=== PATIENT | male | born 1955 | race African-American/Black ===

== ENCOUNTER 2020-07-21 18:32 | Inpatient (IN) | payer MEDICARE, MEDICAID ==
[~2020-07-21] VITALS: Ht 190.5 cm; Wt 75.8 kg
[2020-07-21] MEDS ORDERED: SODIUM CHLORIDE 0.9% 1,000 ML IV ONE (19:58)
[2020-07-21] MEDS ORDERED: OLANZAPINE 10 MG/VIAL IM ONE (20:00)
[2020-07-21] MEDS ORDERED: LORAZEPAM 2MG/ML CPJ IM ONE ×2 (20:00→22:15)
[2020-07-21 20:56] LABS: BASOPHILS % 0.6 % (0.0-2.0); EOSINOPHILS % 0.9 % (0.0-5.0); HEMATOCRIT. 45.5 % (42.0-52.0); HEMOGLOBIN. 15.2 g/dL (14.0-18.0); LYMPHOCYTES % 34.9 % (20.0-50.0); MEAN CORPUSCULAR HEMOGLOBIN 29.4 pg (28.0-32.0); MEAN CORPUSCULAR VOLUME 87.8 fL (80.0-94.0); MEAN PLATELET VOLUME 8.2 fl (7.4-10.4); MONOCYTES % 8.2 % (2.0-8.0); NEUTROPHILS % 55.4 % (40.0-76.0); PLATELET 190 x1000/uL (130-400); RED BLOOD CELL COUNT 5.18 mill/uL (4.7-6.1); RED CELL DISTRIBUTION WIDTH 16.9 % (11.6-14.6)
[2020-07-21 21:00] LABS: CHLORIDE 106 mEq/L (98-107)
[2020-07-21 21:01] LABS: CLARITY URINE CLEAR (CLEAR); COLOR URINE DARK YELLOW (YELLOW); KETONES URINE TRACE (NEGATIVE); LEUKOCYTE ESTERASE URINE NEGATIVE (NEGATIVE); NITRITE URINE NEGATIVE (NEGATIVE); OCCULT BLOOD URINE 1+ (NEGATIVE); PH URINE 5.5 (4.5-8.0); PROTEIN URINE 3+ (NEGATIVE); SPECIFIC GRAVITY URINE 1.023 (1.005-1.030)
[2020-07-21 21:04] LABS: ETHANOL BLOOD < 10 mg/dL
[2020-07-21 21:08] LABS: CREATINE KINASE 282 IU/L (39-308)
[2020-07-21 21:17] LABS: *AMPHETAMINES SCREEN URINE NEGATIVE (NEGATIVE); *BARBITURATES SCREEN URINE NEGATIVE (NEGATIVE); *BENZODIAZEPINES SCREEN URINE PRESUMTIVE POSITIVE (NEGATIVE)
[2020-07-21 21:18] LABS: *COCAINE SCREEN URINE NEGATIVE (NEGATIVE); METHADONE URINE SCREEN NEGATIVE (NEGATIVE); OPIATES URINE SCREEN NEGATIVE (NEGATIVE); PHENCYCLIDINE URINE SCREEN NEGATIVE (NEGATIVE)
[2020-07-21 21:20] LABS: CANNABINOID URINE SCREEN PRESUMTIVE POSITIVE (NEGATIVE)
[2020-07-21] MEDS ORDERED: DIPHENHYDRAMINE 50MG/ML VIAL IM ONE (22:15)
[2020-07-22] MEDS ORDERED: LABETALOL 5MG/ML SYR 20 MG/4 ML SYRINGE IV PRN (06:45)
[2020-07-22 08:30] VITALS: BP 176/112
[2020-07-22] MEDS ORDERED: ONDANSETRON HCL 4MG/2ML INJ IV PRN (09:00)
[2020-07-22] MEDS ORDERED: POTASSIUM CHLORIDE 20MEQ TABLET SR PO NR (09:00)
[2020-07-22] MEDS ORDERED: ACETAMINOPHEN 325MG TABLET PO PRN (09:00)
[2020-07-22] MEDS ORDERED: LORAZEPAM 2MG/ML CPJ IV PRN (09:00)
[2020-07-22] MEDS ORDERED: ENOXAPARIN 30MG/0.3ML SYR SUBCUT SCH (09:30)
[2020-07-22] MEDS: AMLODIPINE 10MG TABLET PO SCH (09:38)
[2020-07-22 12:18] VITALS: BP 134/88
[2020-07-22] MEDS ORDERED: DEXTROSE 50% WATER 50ML SYRINGE IV PRN (12:45)
[2020-07-22] MEDS: INSULIN LISPRO 100 UNITS/ML SUBCUT SCH ×4 (13:50→21:00)
[2020-07-22] MEDS: FUROSEMIDE 40MG/4ML VIAL IVP SCH (15:37)
[2020-07-22 16:20] VITALS: BP 138/86
[2020-07-22] MEDS: BLOOD SUGAR DIAGNOSTIC STRIP TEST SCH ×2 (17:30→21:00)
[2020-07-22 20:00] VITALS: BP 101/70
[2020-07-23] VITALS: BP 117/76
[2020-07-23 04:00] VITALS: BP 123/85
[2020-07-23 06:59] LABS: BASOPHILS % 0.6 % (0.0-2.0); EOSINOPHILS % 2.7 % (0.0-5.0); HEMATOCRIT. 44.2 % (42.0-52.0); HEMOGLOBIN. 14.8 g/dL (14.0-18.0); LYMPHOCYTES % 34.5 % (20.0-50.0); MEAN CORPUSCULAR HEMOGLOBIN 29.1 pg (28.0-32.0); MEAN CORPUSCULAR VOLUME 86.6 fL (80.0-94.0); MEAN PLATELET VOLUME 8.4 fl (7.4-10.4); MONOCYTES % 9.7 % (2.0-8.0); NEUTROPHILS % 52.5 % (40.0-76.0); PLATELET 168 x1000/uL (130-400); RED CELL DISTRIBUTION WIDTH 16.8 % (11.6-14.6)
[2020-07-23] MEDS: BLOOD SUGAR DIAGNOSTIC STRIP TEST SCH ×2 (07:20→12:52)
[2020-07-23 08:08] VITALS: BP 127/82
[2020-07-23] MEDS: AMLODIPINE 10MG TABLET PO SCH (08:55)
[2020-07-23] MEDS: INSULIN LISPRO 100 UNITS/ML SUBCUT SCH ×2 (08:55→13:05)
[2020-07-23] MEDS: FUROSEMIDE 40MG/4ML VIAL IVP SCH (08:55)
[2020-07-23] MEDS ORDERED: ASPIRIN 81MG TABLET PO SCH (09:00)
[2020-07-23] MEDS ORDERED: ENOXAPARIN 40MG/0.4ML SYR SUBCUT SCH (09:00)
[2020-07-23 12:19] VITALS: BP 110/55
[2020-07-23] MEDS ORDERED: AMLO10TA80 PO (13:09)
[2020-07-23] MEDS ORDERED: GLIP5TAB12 MT (15:15)
[2020-07-23] MEDS ORDERED: LIP40 MT (15:15)
[2020-07-23 16:00] VITALS: BP 128/85
[2020-07-23 16:24] VITALS: BP 128/85
== END 2020-07-23 17:08 | disposition home or self-care (01) | DRG 52 ==
LOC: ER 18:32 → 6WST 07-22 00:39 → ENRESERV 07-22 07:43
PROVIDERS: ADMIT Internal Medicine; ATTEND Internal Medicine
DX: G92 Toxic encephalopathy (principal); N17.0 Acute kidney failure with tubular necrosis; E11.9 Type 2 diabetes mellitus without complications; I25.10 Atherosclerotic heart disease of native coronary artery without angina pectoris; E87.6 Hypokalemia; F12.90 Cannabis use, unspecified, uncomplicated; F10.129 Alcohol abuse with intoxication, unspecified; Y90.0 Blood alcohol level of less than 20 mg/100 ml; I16.0 Hypertensive urgency; Z95.1 Presence of aortocoronary bypass graft; I11.0 Hypertensive heart disease with heart failure; I50.32 Chronic diastolic (congestive) heart failure
CPT/HCPCS: 36415; 71045; 80048; 80053; 80061; 80305; 80307; 80320; 80329; 81003; 82140; 82550; 82962; 83036; 83880; 84145; 84443; 84484; 85025; 93005; 93306; 99285; J1200; J1650; J1815; J1940; J2060; J3490; J7030; G0480

== ENCOUNTER 2022-02-24 17:47 | Emergency (ER) | payer MEDICARE, OTHER ==
[~2022-02-24] VITALS: Ht 190.5 cm; Wt 84.6 kg
[~2022-02-24 17:47] MED LIST: AMLO10TA80 PO; GLIP5TAB12 MT; LIP40 MT
[2022-02-24] MEDS: LORAZEPAM 2MG/ML CPJ IM NR ×2 (18:41→18:43)
[2022-02-24] MEDS ORDERED: HALOPERIDOL LACTATE 5MG/ML VIAL IM NR (18:45)
[2022-02-24 20:06] LABS: BASOPHILS % 0.6 % (0.0-2.0); EOSINOPHILS % 3.9 % (0.0-5.0); HEMATOCRIT. 37.3 % (42.0-52.0); HEMOGLOBIN. 12.6 g/dL (14.0-18.0); LYMPHOCYTES % 30.2 % (20.0-50.0); MEAN CORPUSCULAR HEMOGLOBIN 30.5 pg (28.0-32.0); MEAN CORPUSCULAR VOLUME 89.9 fL (80.0-94.0); MEAN PLATELET VOLUME 8.6 fl (7.4-10.4); MONOCYTES % 8.9 % (2.0-8.0); NEUTROPHILS % 56.4 % (40.0-76.0); PLATELET 186 x1000/uL (130-400); RED BLOOD CELL COUNT 4.15 mill/uL (4.7-6.1)
[2022-02-24 20:16] LABS: CHLORIDE 108 mEq/L (98-107)
[2022-02-24] MEDS ORDERED: LORAZEPAM 2MG/ML CPJ IM ONE (21:45)
[2022-02-25 00:50] VITALS: BP 150/94
== END 2022-02-25 01:55 | disposition short-term general hospital (02) ==
LOC: ER 17:47
DX: G93.40 Encephalopathy, unspecified (principal); R45.1 Restlessness and agitation; I51.7 Cardiomegaly; I25.10 Atherosclerotic heart disease of native coronary artery without angina pectoris; E11.9 Type 2 diabetes mellitus without complications; I10 Essential (primary) hypertension; F20.9 Schizophrenia, unspecified; M19.90 Unspecified osteoarthritis, unspecified site; Z66 Do not resuscitate; Z95.1 Presence of aortocoronary bypass graft
CPT/HCPCS: 36415; 70450; 70486; 71045; 72125; 80053; 82962; 85025; 93005; 96372; 99291; J1630; J2060

== ENCOUNTER 2022-03-11 17:31 | Emergency (ER) | payer MEDICARE, OTHER ==
[~2022-03-11] VITALS: Ht 188 cm; Wt 90.0 kg
[2022-03-12 06:55] VITALS: BP 144/89
== END 2022-03-12 07:07 | disposition left against medical advice (07) ==
LOC: ER 17:31
DX: R41.82 Altered mental status, unspecified (principal); I25.10 Atherosclerotic heart disease of native coronary artery without angina pectoris; K59.00 Constipation, unspecified; E11.9 Type 2 diabetes mellitus without complications; I10 Essential (primary) hypertension; F20.9 Schizophrenia, unspecified
CPT/HCPCS: 93005; 99283

== ENCOUNTER 2023-02-13 09:41 | Emergency (ER) | payer MEDICARE, MEDICAID ==
[~2023-02-13] VITALS: Ht 185.4 cm; Wt 71.0 kg
[2023-02-13 09:47] VITALS: BP 125/72
[2023-02-13] MEDS ORDERED: TRANEXAMIC ACID 1,000 MG/10 ML TP ONE (11:15)
[2023-02-13] MEDS ORDERED: ACETAMINOPHEN 325MG TABLET PO STA (11:18)
[2023-02-13 11:19] LABS: BASOPHILS % 0.4 % (0.0-2.0); EOSINOPHILS % 1.4 % (0.0-5.0); HEMATOCRIT. 27.5 % (42.0-52.0); HEMOGLOBIN. 9.5 g/dL (14.0-18.0); LYMPHOCYTES % 23.5 % (20.0-50.0); MEAN CORPUSCULAR HEMOGLOBIN 32.8 pg (28.0-32.0); MEAN CORPUSCULAR VOLUME 95.3 fL (80.0-94.0); MEAN PLATELET VOLUME 7.7 fl (7.4-10.4); MONOCYTES % 6.9 % (2.0-8.0); NEUTROPHILS % 67.8 % (40.0-76.0); PLATELET 198 x1000/uL (130-400); RED BLOOD CELL COUNT 2.88 mill/uL (4.7-6.1); RED CELL DISTRIBUTION WIDTH 15.8 % (11.6-14.6)
[2023-02-13 11:25] LABS: CHLORIDE 106 mEq/L (98-107)
[2023-02-13 11:40] LABS: PARTIAL THROMBOPLASTIN TIME 28.3 sec (23.4-31.0); PROTHROMBIN TIME 10.9 sec (9.6-11.0)
[2023-02-13] MEDS ORDERED: TRANEXAMIC ACID 1,000 MG/10 ML TP NR (12:45)
[2023-02-13] MEDS ORDERED: ACET-2708 PO (14:09)
== END 2023-02-13 14:56 | disposition left against medical advice (07) ==
LOC: ER 10:37
DX: S00.83XA Contusion of other part of head, initial encounter (principal); I10 Essential (primary) hypertension; E11.9 Type 2 diabetes mellitus without complications; Z98.890 Other specified postprocedural states; Z86.59 Personal history of other mental and behavioral disorders; W06.XXXA Fall from bed, initial encounter; Y93.89 Activity, other specified; Y92.89 Other specified places as the place of occurrence of the external cause; Y99.8 Other external cause status
CPT/HCPCS: 36415; 70486; 80053; 85025; 99284